=== PATIENT | female | born 1985 | race Caucasian/White ===

== ENCOUNTER → 2018-07-01 09:28 | Outpatient (CLI) | payer OTHER, SELFPAY ==
[2018-07-01 12:08] LABS: Hematocrit 33.9 % (36-46); Hemoglobin 11.7 g/dL (12.0-16.0)
[2018-07-01 12:30] LABS: GTT (PREG) 1 Hour PP 50gm Dose 93 mg/dL (76-139)
== END ==
PROVIDERS: PCP Family Medicine; Visit Provider Family Medicine
DX: Z34.92 Encounter for supervision of normal pregnancy, unspecified, second trimester (principal)
CPT/HCPCS: 36415; 82950; 85014; 85018

== ENCOUNTER → 2018-08-30 09:56 | Outpatient (CLI) | payer OTHER, SELFPAY ==
[2018-08-31 13:58] LABS: Strep Grp B PCR POS for Grp B Strep
== END ==
PROVIDERS: PCP Family Medicine; Visit Provider Family Medicine
DX: Z34.83 Encounter for supervision of other normal pregnancy, third trimester (principal)
CPT/HCPCS: 87653

== ENCOUNTER → 2018-09-12 14:04 | Outpatient (CLI) | payer OTHER, SELFPAY ==
[2018-09-13 08:34] LABS: Appearance Urine UA SL CLOUDY; Bilirubin Urine UA NEGATIVE (NEGATIVE); Color Urine UA YELLOW; Glucose Urine UA NEGATIVE (Normal); Ketones Urine UA NEGATIVE (NEGATIVE); Leukocyte Esterase Urine UA 1+ (NEGATIVE); Nitrite Urine UA NEGATIVE (Negative); Occult Blood Urine UA 3+ (Negative); Protein Urine UA NEGATIVE (Negative); Specific Gravity Urine UA <=1.005 (1.000-1.035); Urobilinogen Urine UA 0.2 E.U./dL (0.2)
[2018-09-13 09:22] LABS: Bacteria Urine Many (>30); Culture Indicated Urine Specimen Cultured; RBC Urine 10-30/HPF (0-5/HPF); Squamous Epithelial Cell Urine 1-5 /HPF; WBC Urine 1-5/HPF (0-5/HPF)
== END ==
PROVIDERS: PCP Family Medicine; Visit Provider Obstetrics & Gynecology
DX: R31.9 Hematuria, unspecified (principal)
CPT/HCPCS: 81001; 87086

== ENCOUNTER 2018-09-22 01:56 | Inpatient (IN) | payer OTHER, SELFPAY ==
[2018-09-22] MEDS: LACTATED RINGERS 1,000 ML 100 ML IV (02:15)
[2018-09-22] MEDS: PENICILLIN G POTASSIUM 5,000,000 UNIT in DEXTROSE 5% IN WATER 250 ML IV (02:15)
[2018-09-22 02:34] LABS: Add Manual Diff / Slide Review NO; Basophils Percent Auto 0.4 % (0-2); Eosinophils Percent Auto 0.6 % (2-4); Hematocrit 38.2 % (36-46); Hemoglobin 12.9 g/dL (12.0-16.0); Lymphocytes Percent Auto 14.4 % (25-40); Mean Corpuscular HGB Conc 33.7 % (30-36); Mean Corpuscular Hemoglobin 30.4 PG (26-34); Mean Corpuscular Volume 90.3 fL (80-100); Monocytes Percent Auto 6.2 % (3-14); Neutrophils Absolute Auto 11900 /uL (3000-5900); Neutrophils Percent Auto 78.4 % (50-75); Platelet Count 192 X10^3/uL (150-400); Red Blood Cell Count 4.23 X10^6/uL (4.0-5.2); Red Cell Distribution Width 14.5 % (11.6-14.8); White Blood Cell Count 15.2 X10^3/uL (4.5-11.0)
--- NOTE | 2018-09-22 02:59 | PM.OBHP.1 ---
OB HPI Date/Time Date of admission: 09/22/18 Date Patient Seen: 09/22/18 Time Patient Seen: 02:15 History of Present Condition Chief complaint: OBSERVATION : 2 Para: 1 Estimated Date of Delivery: 09/23/18 Estimated Gestational Age (weeks): 39w6d Narrative: Dayna Cuadra is a 33 year old at 39w6d who presented with SROM in active labor. The pt reports starting to have regular painful contractions around 4pm yesterday. They were gradually increasing in intensity and frequency. Then at around 1:15am she felt a large gush of fluid. It was clear in appearance. She denies significant vaginal bleeding. History of Present care: good care Dating criteria: LMP confirmed by 1st trimester US Ultrasounds: abnormal US findings Abnormal ultrasound findings: Reportedly with calcification on liver. Never was able to see ultrasound report. Recommended ultrasound be completed as an outpatient. Obstetrical complications: none Medical complications: none Preadmission Labs Blood type: O (+) positive -: Antibody screen: negative, Cystic fibrosis screen: negative, GBS status: positive, HBsAG: negative, HIV: negative and RPR/VDLR: negative -: Chlamydia screen: not detected and Gonorrhea screen: not detected -: Rubella: not immune HCT: 36.3 1 hr GTT: 93 Prior (ies) History: 08/14/15 - 38wks gestation, [id number] boy, polyhydramnios during . Baby required phototherapy. Evaluation Evaluation Baseline heart rate: 135 Variability: Moderate (11-25) monitor accelerations: Present monitor decelerations: Absent Contraction Frequency (minutes): 2 Uterine Contraction Intensity: Strong/Firm Category of Tracing: I Cervical dilation (cm): 10 Cervical effacement (%): 100 station: +3 Laboratory results: Laboratory Tests 09/22/18 02:20 WBC 15.2 H RBC 4.23 Hgb 12.9 Hct 38.2 MCV 90.3 MCH 30.4 MCHC 33.7 RDW 14.5 Plt Count 192 Neut % (Auto) 78.4 H Lymph % (Auto) 14.4 L [place] % (Auto) 6.2 Eos % (Auto) 0.6 L Baso % (Auto) 0.4 Neut # (Auto) 47725 H PFSH Social History Smoking Status: Never smoker Meds Home Medications Medication Instructions Recorded Confirmed Type No Known Home Medications 09/22/18 09/22/18 History Allergies Allergy/AdvReac Type Severity Reaction Status Date / Time No Known Drug Allergies Allergy Verified 09/22/18 03:14 Exam Narrative Exam Narrative: Gen: very uncomfortable laying on side in bed, pushing with contractions CV: RRR, no murmurs Resp: clear to auscultation bilaterally Abd: soft, gravid, appropriately tender Ext: no edema Objective Labs Result Diagrams: 09/22/18 02:20 Labs: Laboratory Results - last 24 hr 09/22/18 02:20 WBC 15.2 H RBC 4.23 Hgb 12.9 Hct 38.2 MCV 90.3 MCH 30.4 MCHC 33.7 RDW 14.5 Plt Count 192 Neut % (Auto) 78.4 H Lymph % (Auto) 14.4 L [place] % (Auto) 6.2 Eos % (Auto) 0.6 L Baso % (Auto) 0.4 Neut # (Auto) 51980 H Assessment and Plan (1) 39 weeks gestation of : Current visit: Yes Status: Acute Plan: Plan: 33yo at 39w6d who presented in active labor with SROM at home. GBS positive, started antibiotic prophylaxis with penicillin but already pushing, therefore will not be able to receive adequate treatment. - Expectant management, anticipate - FHT reassuring - Unable to obtain epidural, anesthesia present - GBS positive, continue penicillin infusion
[2018-09-22 03:14] VITALS: BP 126/74
[2018-09-22] MEDS: IBUPROFEN 600 MG TABLET PO ×3 (04:44→23:34)
[2018-09-22] MEDS: OXYCODONE/ACETAMINOPHEN 5/325 TABLET 1 TAB PO ×2 (07:23→16:24)
[2018-09-22] MEDS: PRENATAL VIT,CALC/IRON/FOLIC 1 TABLET 1 TAB PO (09:02)
[2018-09-22] MEDS: DOCUSATE 250 MG CAPSULE PO (09:02)
--- NOTE | 2018-09-22 12:18 | PM.OBPRVD ---
Delivery date: 09/22/18 Intrapartal events: Precipitous Labor < 3 hours Induction method: none Delivery monitor: external FHT Route of delivery: Episiotomy description: None Laceration description: Perineal - 2nd Degree Delivery repair: vicryl Estimated blood loss (mL): 100 Anesthesia type: None Complications: None Narrative: PROCEDURE: at 39w6d presented in active labor with SROM and was admitted to Labor and Delivery. The patient progressed through the 1st stage over 10.5 hours. At the time of presentation to the hospital, the pt was already 8cm and quickly progressed to complete and pushing. Pain was controlled with natural methods due to the inability to obtain an epidural in time. The patient progressed through the 2nd stage over 5 minutes and delivered a viable male with APGARs 9/9 at 2:31 via . The first bag of penicillin was still infusing at the time of delivery. The perineum and vagina were inspected with 2nd degree perineal laceration repaired with 3-O Chromic. PREPROCEDURE DIAGNOSIS: Intrauterine at 39w6d GBS positive RH positive POSTPROCEDURE DIAGNOSIS: Intrauterine at 39w6d, delivered Same as preprocedure GBS positive, inadequate prophylaxis ROM APPEARANCE: Clear BABY A DELIVERY TIME: 2:31am BABY A WEIGHT: 8lb5oz (3773g) BABY A NUCHAL CORD: None PLACENTA DELIVERY TIME: 2:37am PLACENTA APPEARANCE: Intact [place] Baby 1: Infant gender: Male Presentation: vertex position: Right Occiput Anterior Placenta delivery description: Spontaneous cord vessel description: 3 Vessels score (1 min): 9 score (5 min): 9 Plan for aftercare: Normal care support
--- NOTE | 2018-09-22 12:25 | PM.OBPRVD ---
Delivery date: 09/22/18 Intrapartal events: Precipitous Labor < 3 hours Induction method: none Delivery monitor: external FHT Route of delivery: Laceration description: Perineal - 2nd Degree Estimated blood loss (mL): 100 Anesthesia type: None Narrative: PROCEDURE: at 39w6d presented in active labor with SROM and was admitted to Labor and Delivery. The patient progressed through the 1st stage over 10.5 hours. The pt was 8cm at the time of presentation to the hospital, and rapidly progressed to complete and pushing. Pain was controlled with natural methods, as an epidural could not be obtained due to her rapid progress. The patient progressed through the 2nd stage over 5 minutes and delivered a viable male with APGARs 9/9 at 2:31 via . GBS prophylaxis with penicillin was initiated, but the first bag was still infusing at the time of delivery. The perineum and vagina were inspected with 2nd degree perineal laceration repaired with 3-O Chromic. PREPROCEDURE DIAGNOSIS: Intrauterine at 39w6d GBS positive RH positive POSTPROCEDURE DIAGNOSIS: Intrauterine at 39w6d, delivered Same as preprocedure GBS positive, inadequate prophylaxis LABOR AUGMENTATION: none ROM APPEARANCE: Clear BABY A DELIVERY TIME: 2:31am BABY A WEIGHT: 8lb5oz BABY A NUCHAL CORD: No PLACENTA DELIVERY TIME: 2:37am PLACENTA APPEARANCE: Intact [address] Baby 1: gender: Male Presentation: vertex position: Right Occiput Anterior Placenta delivery description: Spontaneous cord vessel description: 3 Vessels score (1 min): 9 score (5 min): 9 Plan for aftercare: Normal care support
--- NOTE | 2018-09-23 09:47 | P.DS_ITS ---
Discharge Providers Date of admission: 09/22/18 01:56 Primary care physician: Sarah Villa MD Consults: 09/22/18 03:23 Consult to Auto Claim Representative Routine Comment: Discharge provider: Sarah Villa MD Discharge Date: 09/23/18 Summary Date Patient Seen: 09/23/18 Time Patient Seen: 09:30 Hospital Course: The pt presented in active labor. Her labor rapidly progressed, and she had a precipitous vaginal delivery of a viable baby boy. She did not receive adequate GBS prophylaxis due to the speed of her delivery. , there were no complications. The pt was voiding, ambulating and passing flatus at the time of discharge. Her lochia was decreasing appropriately, and pain well controlled. She was with good latch. She will f/u with Dr Villa in 6 weeks. She does not believe she will use any contraception, as they have dealt with fertility issues in the past. Peripartum Data Infant Delivery Method: Natural Vaginal Laceration description: Perineal - 2nd Degree Episiotomy description: None Procedures: spontaneous vaginal delivery complications: none 1: Gender: Male Disposition of : home Discharge Diagnosis (1) 39 weeks gestation of : Status: Acute (2) (spontaneous vaginal delivery): Status: Acute Status at Discharge Functional status at discharge: independent ambulation Overall status at discharge: patient is progressing back to baseline Time Spent with Patient Total time spent providing and/or coordinating discharge services: Objective Labs Result Diagrams: 09/22/18 02:20 Discharge Plan Discharge Plan Patient Disposition: Home Discharge Med Rec/Prescriptions Prescriptions: New acetaminophen 325 mg Tablet 650 mg PO Q6HR PRN (Reason: Pain, Mild (1-3)) 30 Days RF: 0 benzocaine-menthol [Dermoplast (with menthol)] 20-0.5 % Aerosol 1 spray Topical Q1HR PRN (Reason: perineal pain) Qty: 15 RF: 0 ibuprofen 600 mg Tablet 600 mg PO Q6HR PRN (Reason: Pain, Mild (1-3)) Qty: 30 RF: 0 docusate sodium 250 mg Capsule 250 mg PO DAILY Qty: 30 RF: 0 lanolin [Drd-M-Sdnnci] Cream 1 applic Topical PRN PRN (Reason: Tenderness) Qty: 15 RF: 0 vit,[id number] [Prenatabs Rx] 29 mg iron- 1 mg Tablet 1 tab PO DAILY Qty: 30 RF: 0 oxycodone-acetaminophen 5-325 mg Tablet 1 tab PO Q4HR PRN (Reason: Pain, Moderate (4-6)) Qty: 5 RF: 0 Follow up/Referrals: Sarah Villa MD [Primary Care Provider] - 6 Weeks ([place] up appointment[place] Provider Discharge Instructions Diet: Regular Activity: No intercourse for 6 weeks Gradual return to normal activities Recommend daily walks Skin/Wound/Dressing Care Report to your healthcare provider any signs of infection, such as:: chills, fever, increased pain and unusual drainage Visit Report/Discharge Packet Instructions: DI for Labor and Delivery, Vaginal Stand Alone Forms: Discharge: Care Visit Report Forms: Stroke Signs & Symptoms Discharge Data Primary Care Provider: Sarah Villa Attending Provider: Sarah Villa Admit Date/Time: 09/22/18 01:56 Discharges patient from system. Discharge Date/Time: 09/23/18 14:25
[2018-09-23 10:38] VITALS: BP 123/81; PULSE 86; RESP 16; TEMP 36.6
[2018-09-23] MEDS: OXYCODONE/ACETAMINOPHEN 5/325 TABLET 1 TAB PO (12:22)
[2018-09-23] MEDS: IBUPROFEN 600 MG TABLET PO (12:22)
== END 2018-09-23 14:25 | disposition home or self-care (01) | DRG 807 ==
PROVIDERS: Admitting Provider Family Medicine; PCP Family Medicine; Visit Provider Family Medicine
DX: O99.824 Streptococcus B carrier state complicating childbirth (principal); Z37.0 Single live birth; Z3A.39 39 weeks gestation of pregnancy; O70.1 Second degree perineal laceration during delivery
CPT/HCPCS: 59050; 59410; 85025; 86850; 86900; 86901; G0379; J2540

== ENCOUNTER 2019-07-25 09:11 | Emergency (ER) | payer OTHER, SELFPAY ==
--- NOTE | 2019-07-25 09:28 | ED_ITS ---
HPI - Female Genitourinary General Chief complaint: Urogenital-Female Stated complaint: left sided pain/kidney stone x1 wk Time Seen by Provider: 07/25/19 09:26 Source: patient Mode of arrival: ambulatory Limitations: no limitations History of Present Illness HPI Narrative: 34-year-old female with left-sided flank and abdominal pain that is been on and off. Most recent episode has been about a week. Been progres sing. Patient states that it sort of waxes and wanes in intensity. She has not had any fevers. She has had some nausea and vomiting she has not had any diarrhea constipation but feels sort of dizzy like she might have some diarrhea. No frequency urgency or dysuria but she did have hematuria particularly last week noted on urine. Today she is not able to visualize any. She does not have any kidney stones in the past that she is aware of. She does have a history of endometriosis and has had a fallopian tube removed secondary to endometriosis. She denies any other past medical history or prior surgeries. No allergies to medications, denies tobacco, alcohol or illicit. She was at the walk-in clinic and referred here and had a dose of Zofran ODT prior to arrival which is helping with her nausea and vomiting. Related Data Previous Rx's Medication Instructions Recorded vit,[id number] 1 tab PO DAILY #30 tab 09/23/18 [Prenatabs Rx] hydrocodone-acetaminophen [Sparkill] 1 tab PO Q6H PRN #10 tab 07/25/19 ondansetron 4 mg disintegrating 4 mg PO Q6-8H PRN #30 tab 07/25/19 tablet tamsulosin [Flomax] 0.4 mg PO DAILY #7 cap 07/25/19 Allergies Allergy/AdvReac Type Severity Reaction Status Date / Time No Known Drug Allergies Allergy Verified 07/25/19 09:44 Review of Systems Review of Systems ROS Unobtainable: All systems reviewed & are unremarkable except as noted in HPI and below Constitutional Constitutional: Denies chills, Denies fever(s), Denies lethargy and Denies weakness Cardiovascular Cardiovascular: Denies chest pain and Denies dyspnea Respiratory Respiratory: Denies dyspnea Gastrointestinal Gastrointestinal: Reports abdominal pain, Denies change in bowel habits, Denies diarrhea, Reports nausea and Reports vomiting Genitourinary Genitourinary: Reports as per HPI (Patient is not on her menses), Denies abnormal menses, Denies abnormal vaginal bleeding, Reports hematuria, Denies urinary frequency, Denies nocturia, Denies dysuria, Reports flank pain, Denies urinary incontinence, Denies urinary hesitancy, Denies urinary urgency and Denies vaginal discharge Neurologic Neurologic: Denies weakness [facility] Medical History (Updated 07/25/19 @ 10:45 by Emelina Garcia DO) Endometriosis (Acute) (spontaneous vaginal delivery) (Resolved) Social History Smoking Status: Never smoker Social History Smoking Status: Never smoker Exam Narrative Exam Narrative: GENERAL: Alert and oriented x three, well-nourished, well- appearing female in mild distress. HEENT: Head normocephalic, atraumatic, EOMI, pupils reactive, face symmetric, moist mucous membranes NECK: Supple, full range of motion CARDIOVASCULAR: Regular rate and rhythm without murmurs, rubs or gallops. RESPIRATORY: Breath sounds equal bilaterally, no wheezes rales or rhonchi. ABDOMEN: Soft, very mild left lower quadrant tenderness.. Normoactive bowel sounds all 4 quadrants. No guarding or rebound, rigidity, no mass : No CVA tenderness EXTREMITIES: Normal range of motion, no clubbing or edema. Neurovascularly intact NEUROLOGICAL: Cranial nerves II through XII grossly intact. Moving all extremities SKIN: Warm, dry, no petechiae, no rashes or lesions. Initial Vital Signs Initial Vital Signs: Vital Signs Temperature 97.9 F 07/25/19 09:38 Pulse Rate 78 07/25/19 09:38 Respiratory Rate 16 07/25/19 09:38 Blood Pressure 125/75 07/25/19 09:38 Pulse Oximetry 100 07/25/19 09:38 Course Orders Ordered: ED Orders 07/25/19 10:08 Complete Blood Count AUTO DIFF Stat Comprehensive Metabolic Panel Stat Lipase Stat Discontinued Medications Sodium Chloride (Normal Saline 0.9%) 1,000 mls @ 1,000 mls/hr IV BOLUS ONE Stop: 07/25/19 10:25 Last Admin: 07/25/19 10:45 Dose: Not Given Documented by: KBARNHA Tamsulosin HCl (Flomax) 0.4 mg PO NOW ONE Stop: 07/25/19 10:20 Last Admin: 07/25/19 10:25 Dose: 0.4 mg Documented by: HENRIK Vital Signs Vital signs: Vital Signs - 8 hr 07/25/19 11:30 Pulse Rate 83 Respiratory Rate 16 Blood Pressure [Left Arm] 105/75 Pulse Oximetry 99 MDM - Female Genitourinary Lab Data Attestation: I reviewed the patient's lab results. Result diagrams: 07/25/19 10:08 07/25/19 10:08 Labs: Lab Results 07/25/19 07/25/19 07/25/19 Range/Units 09:25 10:08 10:08 WBC 11.4 H (4.5-11.0) X10^3/uL RBC 4.43 (4.0-5.2) X10^6/uL Hgb 12.8 (12.0-16.0) g/dL Hct 37.2 (36-46) % MCV 84.0 (80-100) fL MCH 29.0 (26-34) PG MCHC 34.5 (30-36) % RDW 13.0 (11.6-14.8) % Plt Count 191 (150-400) X10^3/uL Neut % (Auto) 92.2 H (50-75) % Lymph % (Auto) 4.0 L (25-40) % [place] % (Auto) 3.5 (3-14) % Eos % (Auto) 0.1 L (2-4) % Baso % (Auto) 0.2 (0-2) % Neut # (Auto) 25954 H (1953-2656) /uL Lymph # (Auto) 500 L (0716-8628) /uL [place] # (Auto) 400 (0-900) /uL Eos # (Auto) 0 (0-450) /uL Baso # (Auto) 0 (0-100) /uL Sodium 138 (137-145) mmol/L Potassium 4.4 (3.4-5.1) mmol/L Chloride 102 (98-107) mmol/L Carbon Dioxide 26 (22-32) mmol/L BUN 26 H (7-17) mg/dL Creatinine 0.90 (0.52-1.04) mg/dL Estimated GFR > 60.0 (>60) mL/min BUN/Creatinine Ratio 28.9 H (6-22) Glucose 97 (70-100) mg/dL Calcium 9.1 (8.4-10.2) mg/dL Total Bilirubin 0.4 (0.2-1.3) mg/dL AST 23 (14-36) IU/L ALT 16 (9-52) IU/L Alkaline Phosphatase 76 (38-126) U/L Total Protein 7.4 (6.3-8.2) g/dL Albumin 4.5 (3.5-5.0) g/dL Globulin 2.9 (1.7-4.1) g/dL Albumin/Globulin Ratio 1.6 (1.0-2.8) Lipase 61 (23-300) U/L Urine RBC 1-5/hpf D (0-5/HPF) Urine WBC None seen (0-5/HPF) Ur Squamous Epith Cells 1-5 /hpf (0-5/HPF) Urine Bacteria None seen (None) Ur Culture Indicated? Cult not indicated Point of Care Testing Test Results Negative Urine Dip Bedside Urine Glucose Negative Bedside Urine Bilirubin - Negative Bedside Urine Ketone +++ 80 Urine Specific [place] 1.025 Bedside Urine Occult Blood + Bedside Urine pH 6.0 Bedside Urine Protein +/- 15 Bedside Urine Urobilinogen - Negative Bedside Urine Nitrite - Negative Bedside Urine Leukocytes - Negative Esterase Imaging Data CT scan - abdomen: Radiologist's impression: Dayna Cuadra 34 F 1985 [place] [address] CT Scan Report Signed Patient: Dayna CuadraMR#: [id number] : 1985Acct:[id number] Age/Sex: 34 / FDate of Service: 07/25/19 Loc: ED Accession Number: [id number] Procedure: CT abdomen pelvis wo con Ordering Provider: Emelina Garcia D.O. PROCEDURE: CT ABDOMEN PELVIS WO CON INDICATIONS: concern for kidney stone. TECHNIQUE: Noncontrast 5 mm thick sections acquired from the diaphragms to the symphysis. 5 mm thick coronal and sagittal reformats were then performed. For radiation dose reduction, the following was used: automated exposure control, adjustment of mA and/or kV according to patient size. COMPARISON: None. FINDINGS: Image quality: Excellent. Lung bases: Lung bases are clear. Heart size is normal. Urinary system: There is a 1 cm obstructing stone seen within the left mid ureter. There is associated severe left-sided hydronephrosis and hydroureter. There is left- sided perinephric fat stranding. The kidneys demonstrate normal size. No definite nonobstructing kidney stones are seen. No right-sided hydronephrosis. The bladder is decompressed. No calcified bladder stones are seen. Other solid organs: Liver is normal in size. Gallbladder wall is not thickened. Pancreas is normal in contours. Spleen is normal in size. No adrenal nodules. Peritoneum and bowel: Unenhanced bowel loops demonstrate normal wall thickness and caliber. No free fluid or air. Incidental note is made of a normal-appearing appendix. Nodes and vessels: No retroperitoneal or mesenteric adenopathy by size criteria. Aorta and inferior vena cava are normal in caliber. Abdominal wall: No ventral hernias. Pelvis: No free pelvic fluid. No inguinal hernias or adenopathy. Cystic changes are seen of the ovaries, which are considered to be within physiologic limits. Bones: No suspicious bony lesions. No vertebral body compression fractures. M ild levoconvex scoliotic curvature is noted. IMPRESSION: There is a 1 cm obstructing stone seen within the left mid ureter, with severe left-sided hydronephrosis and hydroureter. Left-sided perinephric fat stranding is also seen. No definite nonobstructing kidney stones are seen. Incidental note is made of: Levoconvex scoliotic curvature Physiologic cystic changes of the ovaries Normal appendix Dictated by: Sharif Burton M.D. on 07/25/2019 at 9:50 Approved by: Sharif Burton M.D. on 07/25/2019 at 9:55 MDM Narrative Medical decision making narrative: Patient defers any pain medication. She received Zofran prior to arrival and is feeling better. Last weeks urine did show hematuria negative test. Patient given flomax po in department. Spoke with urology through Dr. Brenda Kimble. He will have a to follow with the patient unless she prefers to follow closer. Plan for Flomax. Patient was given a short script of narcotic pain medication and and encouraged to use ibuprofen and Tylenol. We discussed if the stone continues to be in place then she could develop renal failure. She does need intervention at some point. Also given follow-up with Dr. Dobbins who is likely the closest and Urology in [place] as an option. Discharge Plan Departure Patient Disposition: Home Clinical Impression: Kidney stone on left side Discharge Date/Time: 07/25/19 12:57 Instructions: DI for Kidney Stones Activity Restrictions/Additional Instructions: Follow up with urology at the [facility] stone clinic at [phone]. If you prefer a more local urologist one is included. Take flomax once daily. Continue Zofran once daily every 6 hours as needed for nausea. You may take ibuprofen up to 800 mg every 8 hours and/or Tylenol up to a 1000 mg every 8 hours. You may take [place] 1 tablet every 6 hours as needed this medication can make you sleepy do not drive, perform hazardous activities or make any major decisions while taking it. This medication can also make you sleepy so if monitor your child and make sure that you are having a no other individual present while breast feeding to prevent falling asleep while feeding. Return to the emergency department for fevers greater than 100.4 F, new or sudden severe abdominal or flank pain, persistent vomiting, inability to urinate, painful urination, lightheadedness or passing-out. Prescriptions: New tamsulosin [Flomax] 0.4 mg capsule 0.4 mg PO DAILY Qty: 7 RF: 0 hydrocodone-acetaminophen [Sparkill] 5-325 mg tablet 1 tab PO Q6H PRN (Reason: pain) Qty: 10 RF: 0 No Action ondansetron 4 mg tablet,disintegrating 4 mg PO Q6-8H PRN (Reason: nausea and vomiting) Qty: 30 RF: 0 Prenatabs Rx 29 mg iron- 1 mg Tablet 1 tab PO DAILY Qty: 30 RF: 0 Referrals: Daniel Gutierrez MD [Non-Staff] - Jesus Harrison MD [Non-Staff] - Mary Carmen Dobbins MD [Physician] - Sarah Villa MD [Primary Care Provider] -
[2019-07-25 09:38] VITALS: BP 125/75; PULSE 78; RESP 16; TEMP 36.6; O2SAT 100
[2019-07-25 09:46] LABS: Bacteria Urine None Seen; WBC Urine None Seen (0-5/HPF)
--- NOTE | 2019-07-25 09:48 | DI.CT.S_ITS ---
PROCEDURE: CT ABDOMEN PELVIS WO CON INDICATIONS: concern for kidney stone. TECHNIQUE: Noncontrast 5 mm thick sections acquired from the diaphragms to the symphysis. 5 mm thick coronal and sagittal reformats were then performed. For radiation dose reduction, the following was used: automated exposure control, adjustment of mA and/or kV according to patient size. COMPARISON: None. FINDINGS: Image quality: Excellent. Lung bases: Lung bases are clear. Heart size is normal. Urinary system: There is a 1 cm obstructing stone seen within the left mid ureter. There is associated severe left-sided hydronephrosis and hydroureter. There is left-sided perinephric fat stranding. The kidneys demonstrate normal size. No definite nonobstructing kidney stones are seen. No right-sided hydronephrosis. The bladder is decompressed. No calcified bladder stones are seen. Other solid organs: Liver is normal in size. Gallbladder wall is not thickened. Pancreas is normal in contours. Spleen is normal in size. No adrenal nodules. Peritoneum and bowel: Unenhanced bowel loops demonstrate normal wall thickness and caliber. No free fluid or air. Incidental note is made of a normal-appearing appendix. Nodes and vessels: No retroperitoneal or mesenteric adenopathy by size criteria. Aorta and inferior vena cava are normal in caliber. Abdominal wall: No ventral hernias. Pelvis: No free pelvic fluid. No inguinal hernias or adenopathy. Cystic changes are seen of the ovaries, which are considered to be within physiologic limits. Bones: No suspicious bony lesions. No vertebral body compression fractures. Mild levoconvex scoliotic curvature is noted. IMPRESSION: There is a 1 cm obstructing stone seen within the left mid ureter, with severe left-sided hydronephrosis and hydroureter. Left-sided perinephric fat stranding is also seen. No definite nonobstructing kidney stones are seen. Incidental note is made of: Levoconvex scoliotic curvature Physiologic cystic changes of the ovaries Normal appendix Dictated by: Sharif Burton M.D. on 07/25/2019 at 9:50 Approved by: Sharif Burton M.D. on 07/25/2019 at 9:55
[2019-07-25 09:52] LABS: Culture Indicated Urine Cult Not Indicated; RBC Urine 1-5/HPF (0-5/HPF); Squamous Epithelial Cell Urine 1-5 /HPF (0-5/HPF)
[2019-07-25 10:20] LABS: Add Manual Diff / Slide Review NO; Basophils Absolute Auto 0 /uL (0-100); Basophils Percent Auto 0.2 % (0-2); Eosinophils Absolute Auto 0 /uL (0-450); Eosinophils Percent Auto 0.1 % (2-4); Hematocrit 37.2 % (36-46); Hemoglobin 12.8 g/dL (12.0-16.0); Lymphocytes Absolute Auto 500 /uL (1100-4500); Mean Corpuscular HGB Conc 34.5 % (30-36); Monocytes Absolute Auto 400 /uL (0-900); Monocytes Percent Auto 3.5 % (3-14); Neutrophils Absolute Auto 10500 /uL (1500-7000); Neutrophils Percent Auto 92.2 % (50-75); Platelet Count 191 X10^3/uL (150-400); Red Blood Cell Count 4.43 X10^6/uL (4.0-5.2); White Blood Cell Count 11.4 X10^3/uL (4.5-11.0)
[2019-07-25] MEDS: TAMSULOSIN 0.4 MG CAPSULE PO (10:25)
[2019-07-25 10:33] LABS: Alanine Aminotransferase 16 IU/L (9-52); Albumin 4.5 g/dL (3.5-5.0); Albumin Globulin Ratio 1.6 (1.0-2.8); Alkaline Phosphatase 76 U/L (38-126); Aspartate Aminotransferase 23 IU/L (14-36); BUN Creatinine Ratio 28.9 (6-22); Bilirubin Total 0.4 mg/dL (0.2-1.3); Blood Urea Nitrogen 26 mg/dL (7-17); Calcium 9.1 mg/dL (8.4-10.2); Carbon Dioxide 26 mmol/L (22-32); Chloride 102 mmol/L (98-107); Estimated Glomerular Filt Rate > 60.0 mL/min (>60); Globulin 2.9 g/dL (1.7-4.1); Glucose 97 mg/dL (70-100); HEMOLYSIS < 15 (0-50); Lipase 61 U/L (23-300); Potassium 4.4 mmol/L (3.4-5.1); Sodium 138 mmol/L (137-145); Total Protein 7.4 g/dL (6.3-8.2)
--- NOTE | 2019-07-25 10:47 | PC.NURSE ---
Patient's blood work is normal. CT scan shows obstructing left kidney stone. ok to have food and water by mouth per Dr. Garcia. No IV or IV fluids needed at this time while patient is taking oral fluids.
[2019-07-25 11:30] VITALS: BP 105/75; PULSE 83; RESP 16; O2SAT 99
== END 2019-07-25 12:57 | disposition home or self-care (01) ==
PROVIDERS: Emergency Provider Emergency Medicine; PCP Family Medicine
DX: N20.0 Calculus of kidney (principal)
CPT/HCPCS: 36415; 74176; 80053; 81003; 81015; 81025; 83690; 85025; 99283; 99284

== ENCOUNTER → 2019-10-26 09:31 | Outpatient (CLI) | payer OTHER, SELFPAY ==
--- NOTE | 2019-10-26 | DI.US.S_ITS ---
PROCEDURE: US RENAL COMPLETE INDICATIONS: HISTORY STONES TECHNIQUE: Real-time scanning was performed of the kidneys and bladder, with image documentation. COMPARISON: [facility], CT, CT ABDOMEN PELVIS WO CON, 07/25/2019, 9:40. FINDINGS: Kidneys: Kidneys are normal in size. Right kidney measures 9.9 cm long; left kidney measures 12.6 cm long. Right renal cortical thickness is 1.3 cm; left renal cortical thickness is 1.3 cm. Renal cortical echotexture is normal. There is a 4 mm stone in the inferior right renal collecting system. No hydronephrosis. No suspicious solid mass lesions. Bladder: Pre-void bladder volume is 382 mL. Post-void residual is 26 mL. Pre-void images demonstrate no intraluminal masses or stones. On pre-void images, left ureteral jet is noted with color Doppler interrogation. (Of note, ureteral jets may not be detectable in up to 25% of cases due to insufficient differences in specific gravity between ureteral and bladder urine). Miscellaneous: No free pelvic fluid. IMPRESSION: 1. A 4 mm non-obstructing stone in the left kidney. 2. No hydronephrosis. Dictated by: Jonas Nguyễn M.D. on 10/26/2019 at 14:11 Approved by: Jonas Nguyễn M.D. on 10/26/2019 at 14:14
== END ==
PROVIDERS: PCP Family Medicine; Visit Provider Urology
DX: N20.0 Calculus of kidney (principal); Z87.442 Personal history of urinary calculi
CPT/HCPCS: 76770

== ENCOUNTER → 2019-11-28 12:14 | Outpatient (CLI) | payer OTHER, SELFPAY ==
[2019-11-28 12:51] LABS: Appearance Urine UA CLEAR; Bilirubin Urine UA NEGATIVE (NEGATIVE); Color Urine UA YELLOW; Glucose Urine UA NEGATIVE (Negative); Ketones Urine UA NEGATIVE (NEGATIVE); Leukocyte Esterase Urine UA NEGATIVE (NEGATIVE); Nitrite Urine UA NEGATIVE (Negative); Occult Blood Urine UA NEGATIVE (Negative); Protein Urine UA NEGATIVE (Negative); Urobilinogen Urine UA 0.2 E.U./dL (0.2)
[2019-11-28 12:53] LABS: Add Manual Diff / Slide Review NO; Basophils Absolute Auto 0 /uL (0-100); Basophils Percent Auto 0.4 % (0-2); Eosinophils Absolute Auto 100 /uL (0-450); Hematocrit 38.1 % (36-46); Hemoglobin 13.2 g/dL (12.0-16.0); Lymphocytes Absolute Auto 1500 /uL (1100-4500); Lymphocytes Percent Auto 15.6 % (25-40); Mean Corpuscular HGB Conc 34.6 % (30-36); Mean Corpuscular Hemoglobin 28.9 PG (26-34); Mean Corpuscular Volume 83.3 fL (80-100); Monocytes Absolute Auto 400 /uL (0-900); Monocytes Percent Auto 4.6 % (3-14); Neutrophils Absolute Auto 7500 /uL (1500-7000); Neutrophils Percent Auto 78.4 % (50-75); Platelet Count 218 X10^3/uL (150-400); Red Blood Cell Count 4.57 X10^6/uL (4.0-5.2); Red Cell Distribution Width 13.4 % (11.6-14.8); White Blood Cell Count 9.5 X10^3/uL (4.5-11.0)
[2019-11-28 15:29] LABS: Hepatitis B Surface Antigen NEGATIVE s/c (NEGATIVE); Rubella Antibody IgG 3.6 IU/mL (>15)
[2019-11-28 15:42] LABS: HIV 1 & 2 Ab/Ag 4th Gen Combo NEGATIVE (NEGATIVE); Hep C Virus Ab w/Reflex Quant NEGATIVE s/c (NEGATIVE)
[2019-11-30 13:22] LABS: Varicella IgG Antibody < 135.00 Index (< 135.00)
[2019-11-30 19:43] LABS: RPR Screen Nonreactive (Nonreactive)
== END ==
PROVIDERS: PCP Family Medicine; Visit Provider Family Medicine
DX: Z34.81 Encounter for supervision of other normal pregnancy, first trimester (principal)
CPT/HCPCS: 36415; 80055; 81003; 86787; 86803; 86850; 86900; 86901; 87086; 87389

== ENCOUNTER → 2020-01-12 09:40 | Outpatient (CLI) | payer OTHER, SELFPAY ==
[2020-01-16 23:25] LABS: Brief History NTD NG; Calc Gestational Age 15.6; Cigarette Smoker N; Donated Egg N; Donor Egg Age N; Estriol, Free 0.95 ng/mL; Inhibin A, Dimeric 126 pg/mL; Inhibin A, MoM 0.68; Maternal Weight 135 lbs; Number of Fetuses 1; Previous Pregnancy Down Syndro N; hCG, MoM 0.97; hCG, Serum 39.3 IU/mL
== END ==
PROVIDERS: PCP Family Medicine; Referring Provider Family Medicine; Visit Provider Family Medicine
DX: Z34.81 Encounter for supervision of other normal pregnancy, first trimester (principal); Z3A.15 15 weeks gestation of pregnancy
CPT/HCPCS: 36415; 82105; 82677; 84702; 86336

== ENCOUNTER → 2020-02-14 11:20 | Outpatient (CLI) | payer OTHER, SELFPAY ==
--- NOTE | 2020-02-14 11:21 | DI.US.S_ITS ---
PROCEDURE: US OB >= 14 WEEKS FETUS INDICATIONS: ANATOMY SCAN OUTSIDE/PRIOR DATING DATA: Last menstrual period (LMP): 09/25/19. LMP-based estimated date of delivery (VIV): 07/01/20. First dating scan (date and location): 02/14/20. Estimated date of delivery (VIV) from first dating scan: 06/26/20. TECHNIQUE: Real-time scanning was performed of the fetus, with image documentation and biometric measurements. Endovaginal scanning: Not performed COMPARISON: None. FINDINGS: General: A single living intrauterine gestation is present. Presentation: Transverse with the head towards maternal right side. Placenta: Placental position is anterior. Low-lying placenta is seen. No roseann placenta previa. Amniotic fluid index: 25 cm, normal range is 5-24 cm. heart rate: 153 beats per minute. Maternal cervical canal: 4.8 cm long. Normal lower limit is 2.5 cm. biometrics: Biparietal diameter: 5.3 cm, 22 weeks, one day Head circumference: 18.7 cm, 21 weeks, zero day Abdominal circumference: 17 cm, 22 weeks, zero day Femur length: 3.2 cm, 19 weeks, 6 days Estimated gestational age from initial scan: not applicable. Composite gestational age from present scan: 21 weeks, zero day Estimated weight and percentile: 398 g, 86% Measurement variability for biometric dating: +/- 7 days from 14 weeks to 15 weeks 6 days gestation, +/- 10 days from 16 weeks to 21 weeks 6 days gestation, +/- 2 weeks from 22 weeks to 27 weeks 6 days gestation, +/- 3 weeks for 28 weeks gestation or later. weight reference: 4500 g or EFW >90/95% is considered macrosomia or large for gestational age. EFW <10% is small for gestational age. EFW 5% or less is considered intra-uterine growth restriction. Anatomic survey: Neuro: Ventricles are non-dilated at less than 10 mm. Cisterna magna is normal at 3-11 mm. Cerebellum is normal in size and morphology. Nuchal skin fold: Normal at less than 6 mm between 14-21 weeks gestational age. Face: Nose and lips, facial profile are normal. Spine: No evidence for spina bifida. Heart: 4-chambered heart is present, with normal ventricular outflow tracts. Diaphragm: Diaphragm is intact. Stomach: Left-sided stomach is present. Kidneys: No hydronephrosis. Normal is less than 5 mm in 2nd trimester, less than 7 mm in 3rd trimester. Cord: 3-vessel cord has orthotopic insertion. Bladder: Normal in size. Extremities: All 4 extremities identified. IMPRESSION: 1. Single live intrauterine with fetus in transverse lie. heart rate is 153 beats per minute. Estimated gestational age based on current study is 22 weeks, zero days. 2. Suggestion of polyhydramnios with ELLY equals 25 cm. 3. Normal anatomic survey. Dictated by: Robles Proctor M.D. on 02/14/2020 at 15:16 Approved by: Robles Proctor M.D. on 02/14/2020 at 15:19
== END ==
PROVIDERS: PCP Family Medicine; Referring Provider Family Medicine; Visit Provider Family Medicine
DX: Z34.82 Encounter for supervision of other normal pregnancy, second trimester (principal); Z3A.21 21 weeks gestation of pregnancy
CPT/HCPCS: 76811

== ENCOUNTER → 2020-02-29 12:45 | Outpatient (CLI) | payer OTHER, SELFPAY ==
[2020-02-29 15:21] LABS: GTT (PREG) 1 Hour PP 50gm Dose 129 mg/dL (76-139)
== END ==
PROVIDERS: PCP Family Medicine; Referring Provider Family Medicine; Visit Provider Family Medicine
DX: O40.9XX0 Polyhydramnios, unspecified trimester, not applicable or unspecified (principal); Z3A.21 21 weeks gestation of pregnancy
CPT/HCPCS: 36415; 82950

== ENCOUNTER → 2020-04-09 12:22 | Outpatient (CLI) | payer OTHER, SELFPAY ==
[2020-04-09 14:30] LABS: Hematocrit 33.7 % (36-46); Hemoglobin 11.4 g/dL (12.0-16.0)
[2020-04-09 14:42] LABS: GTT (PREG) 1 Hour PP 50gm Dose 170 mg/dL (76-139)
== END ==
PROVIDERS: PCP Family Medicine; Referring Provider Family Medicine; Visit Provider Family Medicine
DX: Z34.90 Encounter for supervision of normal pregnancy, unspecified, unspecified trimester (principal); Z3A.28 28 weeks gestation of pregnancy
CPT/HCPCS: 36415; 82950; 85014; 85018

== ENCOUNTER → 2020-04-17 07:23 | Outpatient (CLI) | payer OTHER, SELFPAY ==
[2020-04-17 08:18] LABS: Glucose Fasting Gestational 83 mg/dL (76-95)
[2020-04-17 10:06] LABS: Glucose 1 Hour Gest 109 mg/dL (76-180)
[2020-04-17 10:23] LABS: Glucose 2 Hour Gest 141 mg/dL (76-155)
[2020-04-17 11:06] LABS: Glucose Tol Interp,Gestational INTERPRETATION
[2020-04-17 12:01] LABS: Glucose 3 Hour Gest 106 mg/dL (76-140)
== END ==
PROVIDERS: PCP Family Medicine; Referring Provider Family Medicine; Visit Provider Family Medicine
DX: O26.899 Other specified pregnancy related conditions, unspecified trimester (principal); R73.09 Other abnormal glucose
CPT/HCPCS: 36415; 82951; 82952

== ENCOUNTER → 2020-06-04 10:50 | Outpatient (CLI) | payer OTHER, SELFPAY ==
[2020-06-05 08:47] LABS: Strep Grp B PCR POS for Grp B Strep
== END ==
PROVIDERS: PCP Family Medicine; Visit Provider Family Medicine
DX: Z34.03 Encounter for supervision of normal first pregnancy, third trimester (principal)
CPT/HCPCS: 87653

== ENCOUNTER → 2020-06-10 11:34 | Outpatient (CLI) | payer OTHER, SELFPAY ==
[2020-06-11 12:51] LABS: COVID19 Sendout Not Detected (Not Detect)
== END ==
PROVIDERS: PCP Family Medicine; Visit Provider Physician Assistant
DX: Z03.818 Encounter for observation for suspected exposure to other biological agents ruled out (principal)
CPT/HCPCS: 87635

== ENCOUNTER 2020-06-26 07:25 | Inpatient (IN) | payer OTHER, SELFPAY ==
--- NOTE | 2020-06-26 08:08 | PM.OBHP.1 ---
OB HPI Date/Time Date of admission: 06/26/20 Date Patient Seen: 06/26/20 Time Patient Seen: 07:45 History of Present Condition Chief complaint: ADMIT : 3 Para: 2 Estimated Date of Delivery: 07/01/20 Estimated Gestational Age (weeks): 39w1d Narrative: Dayna Cuadra is a 35 year old at 39w1d here for elective IOL due to her father being hospitalized with COVID-19 and wanting to ensure he is able to virtually meet the baby. The pt denies any regular contractions, LOF, or vaginal bleeding. She is feeling her baby move regularly. She has no concerns. Her was complicated by polyhydramnios in the late second trimester that self-resolved. Indications Indication for induction OB: other History of Present care: good care, initiated at week # (7) and pounds weight gain (64) Dating criteria: based on 1st trimester US only Ultrasounds: normal 1st trimester US and abnormal US findings (polyhydramnios on anatomy scan) Obstetrical complications: other (polyhydramnios that self-resolved) Medical complications: none Preadmission Labs Blood type: O (+) positive -: Antibody screen: negative, GBS status: positive, HBsAG: negative, HIV: negative and RPR/VDLR: negative -: Rubella: not immune and Varicella: not immune HCT: 36.0 HCAB: negative Quad screen: Normal 1 hr GTT: 170 3 hr GTT: 1 hr (109), 2 hr (141) and 3 hr (106) Fasting blood glucose: 83 Prior (ies) History: 09/01/15 - 38wks , [id number] male, no complications 09/22/18 - 39w4d , 8lb5oz male, no complications Evaluation Evaluation Baseline heart rate: 130 Variability: Moderate (11-25) monitor accelerations: Present monitor decelerations: Absent Cervical dilation (cm): 3 Cervical effacement (%): 70 station: -1 [facility] Medical History (Updated 04/09/20 @ 11:59 by Sarah Villa MD) Endometriosis (Acute) (spontaneous vaginal delivery) (Resolved) Surgical History (Updated 11/16/19 @ 14:44 by Christi Watson RN) H/O laparoscopy (Acute ~2012) Status post laser lithotripsy of ureteral calculus (Acute ~2018) [place] teeth extracted (Acute ~2007) Family History (Updated 11/16/19 @ 14:39 by Christi Watson RN) Grandmother Diabetes mellitus Colon cancer Family/Other Thyroid cancer Family/Other Thyroid cancer Father Chronic mental illness Schizophrenia Brother Schizophrenia Grandfather Multiple myeloma Sister Kidney failure Social History marital status: number of children: 2 household members: spouse and children pets and animals: Yes (dogs X 2) education level: college (some college) roxanne/spiritism: Adventism special roxanne needs: No (Shinto Roxanne) Smoking Status: Never smoker Meds Home Medications and Allergies Home Medications Medication Instructions Recorded Confirmed Type vit,[id number] 1 tab PO DAILY #30 tab 09/23/18 05/21/20 Rx [Prenatabs Rx] ondansetron 4 mg disintegrating 4 mg PO Q6-8H PRN #30 tab 07/25/19 05/21/20 Rx tablet Bacillus coagulans 10 billion cell cell PO 11/16/19 05/21/20 History capsule,delayed release omega 1-ler-ajg-fish oil 300 1 cap PO DAILY 11/16/19 05/21/20 History mg-1,000 mg capsule breast pump #1 each 06/04/20 06/04/20 Rx triamcinolone acetonide 0.5 % 1 applictn TOP BID #15 gram 06/18/20 06/18/20 Rx topical ointment Allergies Allergy/AdvReac Type Severity Reaction Status Date / Time No Known Drug Allergies Allergy Verified 06/10/20 16:34 Exam Const General: cooperative, healthy appearing and comfortable Resp Effort & Inspection: normal respiratory effort Auscultation: clear to auscultation bilaterally Cardio Rate: regular rate Rhythm: regular rhythm Heart Sounds: S1 normal, S2 normal and no murmurs GI Palpation: soft and No tender Auscultation: normal bowel sounds Other: gravid Extrem General: No edema Objective Labs Result Diagrams: 06/26/20 07:50 Assessment and Plan Assessment and Plan Assessment and Plan narrative: 35yo at 39w1d here for elective IOL due to her father being hospitalized with COVID-19 and wanting to ensure he is able to virtually meet the baby. Polyhydramnios early in self-resolved, no other complications with . GBS positive, Rh positive. Day score 9. - Expectant management, anticipate - GBS positive, start penicillin prophylaxis now - hx of rapid labor - Pitocin for induction, titrate as tolerated - FHT reassuring - Epidural for pain control when desired
[2020-06-26 08:09] LABS: Add Manual Diff / Slide Review NO; Basophils Absolute Auto 200 /uL (0-100); Basophils Percent Auto 1.4 % (0-2); Eosinophils Absolute Auto 100 /uL (0-450); Hemoglobin 11.9 g/dL (12.0-16.0); Lymphocytes Absolute Auto 1400 /uL (1100-4500); Lymphocytes Percent Auto 12.2 % (25-40); Mean Corpuscular Hemoglobin 29.7 PG (26-34); Monocytes Absolute Auto 600 /uL (0-900); Monocytes Percent Auto 5.2 % (3-14); Neutrophils Absolute Auto 9000 /uL (1500-7000); Neutrophils Percent Auto 80.2 % (50-75); Platelet Count 144 X10^3/uL (150-400); Red Cell Distribution Width 15.9 % (11.6-14.8); White Blood Cell Count 11.2 X10^3/uL (4.5-11.0)
[2020-06-26] MEDS: PENICILLIN G POTASSIUM 5,000,000 UNIT in DEXTROSE 5% IN WATER 250 ML IV (08:10)
[2020-06-26] MEDS: LACTATED RINGERS 1,000 ML 100 ML IV ×2 (08:21→13:48)
[2020-06-26] MEDS: OXYTOCIN PREMIX 30 UNIT/500 ML PLAST..BAG IV (08:21)
[2020-06-26 11:48] VITALS: BP 123/72
[2020-06-26] MEDS: PENICILLIN G POTASSIUM 3,000,000 UNIT/50 ML FROZ.PIGGY 100 UNIT IV (12:00)
[2020-06-26 12:39] LABS: COVID19 -Nasal RAPID Negative (Negative)
--- NOTE | 2020-06-26 13:17 | PM.OBPNLAB ---
Date/Time Date Patient Seen: 06/26/20 Time Patient Seen: 12:30 Pain Control Pain control: tolerating well Pelvic Exam Dilation (cm): 3 Effacement (%): 70 station: -1 Amniotic membrane status: Ruptured Comments: After informed consent, AROM performed with production of clear fluid. Contractions Monitor mode: External Pitocin rate (mU/min): 7 Contraction frequency (min): 2 Contraction duration (min): 1 Contraction pattern: Irregular Contraction intensity: Moderate Status status: Category l Heart Rate Baseline: 145 Monitor Accelerations: Present Monitor Decelerations: Absent Monitor Variability: Moderate Assessment and Plan Comments: 35yo at 39w1d here for elective IOL due to her father being hospitalized with COVID-19 and wanting to ensure he is able to virtually meet the baby. Polyhydramnios early in self-resolved, no other complications with . GBS positive, Rh positive. On pitocin with no significant cervical change thus far. AROM performed with production of clear fluid. - Expectant management, anticipate - GBS positive, s/p one dose with adequate prophylaxis, continue with scheduled penicillin - Continue Pitocin, titrate as tolerated - FHT reassuring - Epidural for pain control when desired
--- NOTE | 2020-06-26 15:33 | PM.OBPRVD ---
Labor & Delivery Delivery date: 06/26/20 Intrapartal events: None Induction method: per pitocin protocol Delivery augmentation: rupture of membranes Delivery monitor: external FHT Route of delivery: Episiotomy description: None L&D Laceration Description: Perineal - 2nd Degree Estimated blood loss (mL): 200 Anesthesia type: Epidural Complications: None Narrative: PROCEDURE: at 39w1d presented for IOL and was admitted to Labor and Delivery. The patient progressed through the 1st stage over 1 hours. Pitocin was used for IOL. She received adequate GBS prophylaxis with penicillin. AROM was performed with production of clear fluid. Pain was controlled with an epidural. The patient progressed through the 2nd stage over 30 minutes and delivered a viable male infant with APGARs 8/9 at 14:50 via without complications. The perineum and vagina were inspected with 2nd degree perineal laceration repaired with 3-O Chromic. PREPROCEDURE DIAGNOSIS: Intrauterine at 39w1d GBS positive RH positive POSTPROCEDURE DIAGNOSIS: Intrauterine at 39w1d, delivered Same as preprocedure ROM APPEARANCE: Clear BABY A DELIVERY TIME: 14:50 BABY A WEIGHT: 8lb15.8oz, 4077g BABY A NUCHAL CORD: None PLACENTA DELIVERY TIME: 14:55 PLACENTA APPEARANCE: Intact Baby 1: gender: Male Presentation: vertex position: Right Occiput Anterior Placenta delivery description: Spontaneous cord vessel description: 3 Vessels score (1 min): 8 score (5 min): 9 Plan for aftercare: Normal care
[2020-06-26] MEDS: DERMOPLAST SPRAY 20% 60 ML 1 SPRAY TOP (16:51)
[2020-06-26 19:24] VITALS: TEMP 36.3
[2020-06-26] MEDS: IBUPROFEN 600 MG TABLET PO (19:24)
[2020-06-27] MEDS: IBUPROFEN 600 MG TABLET PO ×3 (02:18→16:21)
[2020-06-27] MEDS: DOCUSATE 100 MG CAPSULE PO (08:29)
[2020-06-27] MEDS: PRENATAL VIT,CALC/IRON/FOLIC 1 TABLET 1 TAB PO (08:29)
--- NOTE | 2020-06-27 09:28 | P.DS_ITS ---
Discharge Providers Provider Date of admission: 06/26/20 07:25 Discharge Date: 06/27/20 Primary care physician: Sarah Villa MD Consults: 06/27/20 15:29 Consult to Director Of Medical Services Routine Comment: Discharge provider: Sarah Villa MD Summary Hospital Course Date Patient Seen: 06/27/20 Time Patient Seen: 07:50 Procedures: Spontaneous vaginal delivery Hospital Course: The patient presented for induction of labor. She received Pitocin for induction, which was titrated to regular painful contractions. The patient received penicillin for GBS prophylaxis. AROM was performed with production of clear fluid. The patient progressed to complete and had a spontaneous vaginal delivery of a viable baby boy at 2:50 p.m. on 06/26/2020. A second-degree perineal laceration was repaired. There were no complications at delivery. , there were no complications. At the time of discharge was voiding, ambulating, passing flatus without difficulty. Her lochia was decreasing appropriately. Her pain was adequately controlled. She was breast-feeding with good latch. She will follow-up in clinic in 6 weeks for her check. She desires an IUD for contraception. Peripartum Data Infant Delivery Method: Natural Vaginal Laceration Description: Perineal - 2nd Degree Episiotomy description: None Procedures: Spontaneous vaginal delivery complications: none [place] 1: Gender: Male Disposition of : home Discharge Diagnosis (1) Spontaneous vaginal delivery: Status: Acute Status at Discharge Cognitive/behavioral status at discharge: oriented Functional status at discharge: independent ambulation Overall status at discharge: patient is progressing back to baseline Time Spent with Patient Time attestation: Total time spent providing and/or coordinating discharge services: Objective Labs Result Diagrams: 06/26/20 07:50 Labs: Laboratory Results - last 24 hr 06/26/20 08:35 COVID-19 PCR Negative Exam Const General: cooperative, healthy appearing and comfortable Resp Effort & Inspection: normal respiratory effort Auscultation: clear to auscultation bilaterally Cardio Rate: regular rate Rhythm: regular rhythm Heart Sounds: S1 normal, S2 normal and no murmurs GI Palpation: soft and No tender Auscultation: normal bowel sounds Other: fundus firm and below the umbilicus Extrem General: No edema Discharge Plan Discharge orders & Medications Discharge Orders: Discharge (Order); Ordered 06/27/20 Ordered By: Sarah Villa Prescriptions: New acetaminophen 325 mg Tablet 650 mg PO Q6HR PRN (Reason: Pain, Mild (1-3)) Qty: 30 RF: 0 Dermoplast (with menthol) 20-0.5 % Aerosol 1 spray topical Q1HR PRN (Reason: perineal pain) Qty: 54 RF: 0 docusate sodium [DOK] 100 mg Capsule 100 mg PO DAILY Qty: 30 RF: 0 ibuprofen 600 mg Tablet 600 mg PO Q6HR PRN (Reason: Pain, Mild (1-3)) Qty: 30 RF: 0 Vot-J-Arvwpx Cream 1 applic topical PRN PRN (Reason: Tenderness) Qty: 15 RF: 0 Prenatabs Rx 29 mg iron- 1 mg Tablet 1 tab PO DAILY Qty: 30 RF: 0 Continued (DME) breast pump Device See Rx Instructions .ROUTE .MEDSUPPLY Qty: 1 RF: 0 ondansetron 4 mg tablet,disintegrating 4 mg PO Q6-8H PRN (Reason: nausea and vomiting) Qty: 30 RF: 0 omega 8-gni-ree-fish oil 300-1,000 mg capsule 1 cap PO DAILY RF: 0 Follow up/Referrals: Sarah Villa MD [Primary Care Provider] - 6 Weeks Skin/Wound/Dressing Care Report to your healthcare provider any signs of infection, such as:: chills, fever, increased pain and unusual drainage Visit Report/Discharge Packet Instructions: DI for Labor and Delivery, Vaginal Visit Report Forms: Patient Portal/API, Stroke Signs & Symptoms Discharge Data Primary Care Provider: Sarah Villa
[2020-06-27 12:43] VITALS: BP 133/84; PULSE 97; RESP 16; TEMP 37.1
[2020-06-27] MEDS: MEASLES,MUMPS,RUBELLA VACC/PF 0.5 ML VIAL SUBCUT (17:18)
[2020-06-27 17:35] VITALS: BP 133/84; PULSE 97; RESP 16; TEMP 37.1
== END 2020-06-27 17:32 | disposition home or self-care (01) | DRG 807 ==
PROVIDERS: Admitting Provider Family Medicine; PCP Family Medicine; Referring Provider Family Medicine; Visit Provider Family Medicine
DX: O99.824 Streptococcus B carrier state complicating childbirth (principal); Z37.0 Single live birth; O70.1 Second degree perineal laceration during delivery; Z3A.39 39 weeks gestation of pregnancy
CPT/HCPCS: 01967; 59050; 59400; 85025; 86850; 86900; 86901; 87635; G0379; J2540; J2590